=== PATIENT | female | born 1970 | race African-American/Black ===

== ENCOUNTER 2022-03-20 20:10 | Inpatient (IN) | payer OTHER, SELFPAY ==
--- NOTE | ~2022-03-20 | MR_ITS ---
EXAMINATION: MR brain/brain stem wo con DATE: 03/22/2022 13:16 INDICATION: Altered mental status. TECHNIQUE: Magnetic resonance imaging (MRI) of the brain and brainstem was performed without intraven ous contrast. COMPARISON: None. FINDINGS: There are scattered areas of nonspecific increased T2-weighted signal intensity in the cere bral white matter, which is within normal limits for the patient's age. There is no intracranial hemo rrhage, acute infarction, or abnormal intracranial mass lesion. The ventricles are normal in size. Ca vum septum pellucidum and vergae are noted. There are likely changes of ocular lens replacement surge hermilo. There is mild mucosal thickening in the paranasal sinuses. The mastoid air cells are normal. IMPRESSION: 1. Normal aging brain. Reviewed, dictated and finalized at location E. 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 Normal aging brain.
--- NOTE | ~2022-03-20 | US_ITS ---
EXAMINATION: US renal BI DATE: 03/21/2022 09:24 INDICATION: Acute kidney injury TECHNIQUE: Multiple grayscale and Doppler ultrasound images of the kidneys were obtained. COMPARISON: None. FINDINGS: The right kidney measures 12.2 x 6 x 4.7 cm. The left kidney measures 11.3 x 5.2 x 5.2 cm. The kidneys demonstrate normal parenchymal echogenicity. There is no hydronephrosis. The bladder is d ecompressed by Dozier catheter.. IMPRESSION: 1. Normal kidneys without hydronephrosis. Reviewed, dictated and finalized at location B. ICE EDUCATOR
--- NOTE | 2022-03-20 19:50 | ADMGEN ---
This patient, Vy Rendon, was admitted to Intensive Care Unit-1. Patient/family oriented to hospital policies and general routines including ID bracelet, bed and alarms, visiting hours, pain management, procedures, bathroom and other care routines, personal items, smoking policy, room service/diet, and visiting hours. Information on how to activate the Rapid Response Team has been discussed. Patient/Family are encouraged to report perceived risks to care and to ask questions if they do not understand what they are told or what they should do.
[2022-03-20 20:00] VITALS: BP 137/86; PULSE 116; PULSE 117; RESP 21; TEMP 34.7; O2SAT 100
[2022-03-20] MEDS: SODIUM CHLORIDE 0.9% IV 1,000 ML 999 ML IV CONT (20:15)
[2022-03-20 20:26] VITALS: BMI 18.3
--- NOTE | 2022-03-20 20:37 | ECG_ITS ---
Measurements Intervals [place] Rate: 117 P: 58 WY: 123 QRS: -4 QRSD: 82 T: 148 QT: 360 QTc: 503 Interpretive Statements SINUS TACHYCARDIA POSSIBLE LEFT ATRIAL ENLARGEMENT DELAYED PRECORDIAL R/S TRANSITION NONSPECIFIC ST & T-WAVE ABNORMALITY- INF/HIGH LAT LEADS BASELINE ARTIFACT- I, II, III, AVR, AVL, AVF, V4-V6 ABNORMAL ECG NO PREVIOUS ECG AVAILABLE FOR COMPARISON Electronically Signed On 03-20-2022 21:02:09 APRON TRIMMER by Jerry Duncan D.O.
--- NOTE | 2022-03-20 20:41 | PM.IMHP ---
H&P: HPI History of Present Illness Date/Time: 03/20/22 20:41 Chief Complaint: Coughing, vomiting, collapse Narrative: 51-year-old female with a past medical history of type 2 diabetes treated with insulin, hypertension, hyperlipidemia, and psychiatric illness who presented to outside ER due to cough, throwing up and collapse. Information is limited as the patient is encephalopathic and only has a GCS of 9. According to the triage nurses report from outside records the patient had been coughing and vomiting at home. She went to the bathroom and evidently collapsed. It is unclear if she hit her head. The family did not go check on her for about 5 minutes when she was found on the floor. When she arrived to the outside facility her heart rate was in the 120s. Her blood pressures were in the 130s to 150 systolic. Her glucoses were greater than 700. The patient received 3 L of normal saline and was started on an insulin drip. Her initial lactic acid was elevated to 5.3 but came down to 2.7 after IV fluid hydration. A Dozier catheter was placed and she had approximately 1.6 L of urine output after fluid boluses. The patient's temperature was low and the patient was placed under a Dakota Hugger. Her temperature had improved but by the time she arrived to our facility her temperature was again unmeasurable with surface measurements. Her temperature with a temperature pulp Dozier after being under Dakota Hugger for approximately 20 minutes was 94.3?. At the outside hospital the patient received vancomycin and cefepime. Her UA at the outside facility was unremarkable except for ketones and large amount of glucose. However when her Dozier was exchanged in the ICU she had white purulent appearing drainage from her urethra. Nursing staff did not note any evidence of superficial yeast infection. On exam the patient does have a wound to the bottom of her left foot that appeared to be consistent with puncture wound but no evidence of infection. White count at the outside facility was elevated to 15.9. Her influenza and COVID PCR was negative at the outside facility. Her pH at the outside facility was 7.1 with a pCO2 less than 14. Her bicarb was undetectable on her CMP and her potassium was 4.6. Her repeat glucose when she arrived at our facility was 280. CT scan of her head at the outside facility demonstrated cerebral atrophy and chronic ischemic changes but no acute process. CT of the cervical spine demonstrate no evidence of fracture but 2 cm thyroid nodule noted. Chest x-ray was unremarkable. Patient was given empiric antibiotic therapy with cefepime and vancomycin. Cefepime 2 g and vancomycin 1 g. Antibiotic dosing was around 14:30. On arrival to our facility the patient still had a GCS of 9. Her mother who had evidently accompanied the patient to our facility is now in the ER being evaluated for chest pain and was not available to provide any history. As a result the entirety of this history was obtained from outside medical records. Review of Systems Review of Systems: Unattainable due to the patient's mentation. [facility] Past Medical History Medical History (Updated 03/20/22 @ 22:01 by Malinda Oneill DO) Essential hypertension Hyperlipidemia Insulin dependent diabetes mellitus Surgical History Surgical History (Updated 03/20/22 @ 20:55 by Malinda Oneill DO) Surgical history unknown Family History Family History (Updated 03/20/22 @ 20:56 by Malinda Oneill DO) Other Unknown family medical history Social History Social History Smoking status: Never smoker Other substance usage details: Unable to assess; Patient unable to answer questions at this time Spiritual care concerns: No Meds Home Medications and Allergies Home Medications Medication Instructions Recorded Confirmed Type amlodipine 10 mg tablet mg 03/20/22 History atorvastatin 40 mg tablet m
[2022-03-20 20:45] VITALS: O2SAT 100
[2022-03-20 20:53] LABS: Appearance Urine Turbid (Clear); Bilirubin Urine Negative (Negative); Blood Urine 2+ (Negative); Color Urine Light Yellow (Yellow); Glucose Urine UA 2+ mg/dL (Negative); Ketones Urine 4+ mg/dL (Negative); Leukocyte Esterase Ur 1+ LEU/UL (NEGATIVE); Nitrate Urine Negative (Negative); Protein Urine 3+ mg/dL (Negative); Specific Grav Ur >= 1.030 (1.001-1.035); Urobilinogen Urine 0.2 mg/dL (<2.0)
[2022-03-20 20:53] LABS: Glucose Point of Care 280 mg/dl (65-105)
[2022-03-20 21:00] LABS: Bacteria Urine 2+ /hpf; Mucus Urine Moderate /lpf; RBC Urine 51-75 /hpf (0-2); Squamous Epithelial Cell Urine Many /hpf (Few); WBC Clumps Urine Present /HPF; WBC Urine >75 /hpf (0-3)
[2022-03-20 21:09] LABS: Add Urine Microscopic? YES
[2022-03-20 21:16] LABS: Glucose Point of Care 207 mg/dl (65-105)
[2022-03-20] MEDS: SODIUM CHLORIDE 0.9% IV 1,000 ML 500 ML IV CONT (21:25)
[2022-03-20 21:26] LABS: Lactic Acid Reflex 1.8 mmol/L (0.7-2.0)
[2022-03-20] MEDS: KCL 20 MEQ/D5/0.45% SOD CHL 1,000 ML 150 ML IV CONT (21:50)
[2022-03-20] MEDS: INSULIN HUMAN REGULAR (*BKC) 100 UNITS in SODIUM CHLORIDE 0.9% IV 99 ML IV CONT (21:51)
[2022-03-20] MEDS: FAMOTIDINE 20 MG/2 ML VIAL IV PUSH (21:59)
[2022-03-20 22:00] VITALS: BP 144/77; PULSE 120; RESP 21; TEMP 35.5; O2SAT 100
[2022-03-20 22:01] LABS: Blood Urea Nitrogen 39 mg/dL (7-17); Calcium 8.4 mg/dL (8.4-10.2); Carbon Dioxide < 5 mmol/L (22-30); Chloride 115 mmol/L (98-107); Estimated CRCL calculation 28 ml/min; Estimated Glomerular Filt Rate 36; Glucose 266 mg/dL (65-110); Magnesium 2.6 mg/dL (1.6-2.3); Phosphorus 5.2 mg/dL (2.5-4.5); Potassium 4.2 mmol/L (3.4-5.0); Sodium 157 mmol/L (137-145)
[2022-03-20 22:08] LABS: Glucose Point of Care 234 mg/dl (65-105)
[2022-03-20 22:28] LABS: Thyroid Stimulating Hormone Reflex 0.314 uIU/mL (0.465-4.68)
[2022-03-20 23:25] LABS: Free T4 Free Thyroxine Reflex 0.94 ng/dL (0.78-2.19)
[2022-03-21] VITALS (14 sets, daily range): BP systolic 140–165; BP diastolic 80–93; PULSE 94–127; RESP 13–28; TEMP 36.6–37.3; O2SAT 97–100; BMI 18.4
[2022-03-21 00:24] LABS: Glucose Point of Care 225 mg/dl (65-105)
[2022-03-21 00:24] LABS: Glucose Point of Care 249 mg/dl (65-105)
[2022-03-21 00:26] LABS: Total Triiodothyronine (T3) 0.48 NG/ML (0.97-1.69)
[2022-03-21 00:50] LABS: Hematocrit 40.8 % (37.0-47.0); Hemoglobin 12.5 g/dL (12.0-15.0); Immature Platelet Fraction Pct 1.8 % (0.9-11.2); Mean Corpuscular HGB Conc 30.6 g/dl (32-36); Mean Corpuscular Hemoglobin 28.2 pg (26-34); Mean Corpuscular Volume 92.1 fl (80-100); Mean Platelet Volume 10.7 fl (7.4-10.4); Platelet Count Result 148 k/mm3 (150-375); Red Blood Count 4.43 M/mm3 (4.2-5.4); Red Cell Distribution Width 13.8 % (11.5-14.5); White Blood Count 13.1 K/mm3 (4.5-10.0)
[2022-03-21 01:04] LABS: Glucose Point of Care 213 mg/dl (65-105)
[2022-03-21 01:32] LABS: Anion Gap 32 mmol/L (8-16); Blood Urea Nitrogen 32 mg/dL (7-17); Calcium 7.9 mg/dL (8.4-10.2); Carbon Dioxide 6 mmol/L (22-30); Chloride 122 mmol/L (98-107); Estimated CRCL calculation 41 ml/min; Estimated Glomerular Filt Rate 57; Glucose 205 mg/dL (65-110); Potassium 3.8 mmol/L (3.4-5.0); Sodium 160 mmol/L (137-145)
[2022-03-21 02:04] LABS: Glucose Point of Care 186 mg/dl (65-105)
[2022-03-21 02:52] LABS: Band Neutrophils Percent 23 % (0-6); Eosinophils Absolute Manual 0.13 K/mm3 (0.02-0.5); Eosinophils Percent Manual 1 % (0-4); Monocytes Absolute Manual 0.13 K/mm3 (0.1-0.90); Monocytes Percent Manual 1 % (3-9); Neutrophils Absolute Manual 11.13 K/mm3 (1.7-7.2); Neutrophils Percent Manual 62 % (46-73); Platelet Estimate Adequate (Adequate); Poikilocytosis 1+ (NORMAL); Total Cells Counted 100
[2022-03-21 02:53] LABS: Burr Cells 1+ (NORMAL); Crenated RBC 1+ (NORMAL); Schistocytes None Seen (NORMAL)
[2022-03-21 02:54] LABS: Toxic Granulation Present (NORMAL)
[2022-03-21 03:10] LABS: Glucose Point of Care 157 mg/dl (65-105)
[2022-03-21] MEDS: DEXTROSE 5% 1,000 ML 1,000 ML 150 ML IV CONT (03:49)
[2022-03-21] MEDS: ONDANSETRON INJ 4 MG/2 ML VIAL IV PUSH (03:50)
[2022-03-21 04:16] LABS: Anion Gap 21 mmol/L (8-16); Blood Urea Nitrogen 30 mg/dL (7-17); Calcium 8.5 mg/dL (8.4-10.2); Carbon Dioxide 10 mmol/L (22-30); Chloride 126 mmol/L (98-107); Estimated CRCL calculation 45 ml/min; Estimated Glomerular Filt Rate > 60; Glucose 151 mg/dL (65-110); Potassium 3.5 mmol/L (3.4-5.0); Sodium 157 mmol/L (137-145)
[2022-03-21 05:15] LABS: Glucose Point of Care 115 mg/dl (65-105)
[2022-03-21 06:03] LABS: Glucose Point of Care 132 mg/dl (65-105)
[2022-03-21 07:27] LABS: Glucose Point of Care 140 mg/dl (65-105)
[2022-03-21 07:32] LABS: Glucose Point of Care 151 mg/dl (65-105)
--- NOTE | 2022-03-21 07:59 | PM.IMPN ---
Progress Note: A&P Assessment and Plan (1) DKA, type 2: Qualifiers: Diabetes mellitus complication detail: with coma Qualified Code(s): E11.11 - Type 2 diabetes mellitus with ketoacidosis with coma Code(s): E11.10 - Type 2 diabetes mellitus with ketoacidosis without coma Status: Acute Assessment and Plan: DKA, appreciate critical care management and consultation (2) Sepsis: Qualifiers: Sepsis acute organ dysfunction status: with acute organ dysfunction Sepsis type: sepsis due to unspecified organism Severe sepsis acute organ dysfunction type: encephalopathy Severe sepsis shock status: without septic shock Qualified Code(s): A41.9 - Sepsis, unspecified organism; R65.20 - Severe sepsis without septic shock; G93.40 - Encephalopathy, unspecified Code(s): A41.9 - Sepsis, unspecified organism Status: Acute Assessment and Plan: Continue broad-spectrum antibiotics, follow-up cultures, unsure of etiology, suspect foot wound? (3) Abnormal urinalysis: Code(s): R82.90 - Unspecified abnormal findings in urine Status: Acute Assessment and Plan: Follow-up urine culture, continue antibiotic (4) Hypothermia: Qualifiers: Encounter type: initial encounter Qualified Code(s): T68.XXXA - Hypothermia, initial encounter Code(s): T68.XXXA - Hypothermia, initial encounter Status: Acute Assessment and Plan: Likely secondary to underlying sepsis, continue Dakota Hugger (5) Acute kidney injury: Code(s): N17.9 - Acute kidney failure, unspecified Status: Acute Assessment and Plan: Likely hypovolemic, continue IV fluids, monitor (6) Coma: Qualifiers: Coma depth: Andreina coma 9-12 Coma timing: at arrival to emergency department Qualified Code(s): R40.2422 - [place] coma scale score 9-12, at arrival to emergency department Code(s): R40.20 - Unspecified coma Status: Acute Assessment and Plan: Due to DKA, anticipate resolution when DKA resolves Plan DVT prophylaxis with Lovenox GI prophylaxis with Pepcid Code status full code Subjective Date/time seen: 03/21/22 07:59 Interval history: Patient resting in bed, responding to some commands, seems confused and intermittently somnolent. Review of Systems Review of Systems: ROS unobtainable: Yes unobtainable due to mental status Exam Narrative: General: Confused, somnolent HEENT: Atraumatic, normocephalic, mucous membranes moist CV: Regular rate and rhythm, S1, S2 Lungs: Clear to auscultation bilaterally, no rales or crackles noted, no wheezes, good air entry Abdomen: Soft, nontender, nondistended Extremities: Normal to inspection Skin: No rashes noted, no lesions or wounds seen Psych: Unable to assess Objective Data Vital Signs Vital Signs: Vital Signs - 24 hr 03/20/22 20:45 03/20/22 20:00 03/20/22 22:00 Temperature 94.5 F L 96 F L Pulse Rate 116 H 120 H Respiratory Rate 21 H 21 H Blood Pressure 137/86 144/77 H Pulse Oximetry 100 100 100 Oxygen Delivery Room Air 03/20/22 22:00 03/20/22 20:00 03/21/22 00:00 Temperature 98 F Pulse Rate 120 H 117 H 126 H Respiratory Rate 28 H Blood Pressure 157/92 H Pulse Oximetry 97 Oxygen Delivery 03/21/22 00:00 03/21/22 00:00 03/21/22 02:00 Temperature 98.4 F Pulse Rate 126 H 127 H 123 H Respiratory Rate 28 H 27 H Blood Pressure 151/83 H Pulse Oximetry 97 100 Oxygen Delivery Room Air 03/21/22 02:00 03/21/22 04:00 03/21/22 04:00 Temperature Pulse Rate 123 H 117 H 117 H Respiratory Rate 27 H Blood Pressure Pulse Oximetry 100 Oxygen Delivery Room Air 03/21/22 04:00 03/21/22 06:00 03/21/22 06:00 Temperature 98.3 F 98.3 F Pulse Rate 120 H 115 H 113 H Respiratory Rate 22 H 23 H Blood Pressure 151/83 H 153/80 H Pulse Oximetry 100 100 Oxygen Delivery Intake/Output Intake/Output: Intake & Out
[2022-03-21] MEDS: ENOXAPARIN 30 MG/0.3 ML SYRINGE SUB-Q (08:05)
[2022-03-21] MEDS: FAMOTIDINE 20 MG/2 ML VIAL IV PUSH ×2 (08:05→21:02)
[2022-03-21 08:52] LABS: Anion Gap 26 mmol/L (8-16); Blood Urea Nitrogen 27 mg/dL (7-17); Calcium 9.3 mg/dL (8.4-10.2); Carbon Dioxide 13 mmol/L (22-30); Chloride 119 mmol/L (98-107); Creatine Kinase 173 U/L (30-135); Estimated CRCL calculation 50 ml/min; Estimated Glomerular Filt Rate > 60; Glucose 129 mg/dL (65-110); Potassium 3.4 mmol/L (3.4-5.0); Sodium 158 mmol/L (137-145)
[2022-03-21 08:58] LABS: Glucose Point of Care 127 mg/dl (65-105)
[2022-03-21 08:58] LABS: Glucose Point of Care 119 mg/dl (65-105)
[2022-03-21] MEDS: KCL 20 MEQ/D5W 1,000 ML 1,000 ML 125 ML IV CONT (08:58)
[2022-03-21] MEDS: POTASSIUM CHLORIDE INJ 40 MEQ in SODIUM CHLORIDE 0.9% IV 500 ML 130 MEQ IVPB ×3 (08:59→19:56)
[2022-03-21 10:02] LABS: Glucose Point of Care 90 mg/dl (65-105)
--- NOTE | 2022-03-21 10:38 | WPDCNINT ---
Assessment and Plan Assessment and plan (1) Sepsis: Qualifiers: Sepsis type: sepsis due to unspecified organism Sepsis acute organ dysfunction status: with acute organ dysfunction Severe sepsis acute organ dysfunction type: encephalopathy Severe sepsis shock status: without septic shock Qualified Code(s): A41.9 - Sepsis, unspecified organism; R65.20 - Severe sepsis without septic shock; G93.40 - Encephalopathy, unspecified Code(s): A41.9 - Sepsis, unspecified organism Status: Acute Assessment and Plan: Sepsis likely secondary to UTI although due to lack of history patient is on broad-spectrum antibiotics Blood cultures have been sent and pending Urine cultures has been sent and pending Her lactic acid has normalized and she has not required any vasopressors Continue IV cefepime and vancomycin Continue IV fluid (2) Acute kidney injury: Code(s): N17.9 - Acute kidney failure, unspecified Status: Acute Assessment and Plan: Likely secondary to dehydration and hypovolemia Creatinine is with IV fluid Urine sodium and creatinine ordered CK level minimally Renal Ultrasound ordered and pending (3) DKA, type 2: Qualifiers: Diabetes mellitus complication detail: with coma Qualified Code(s): E11.11 - Type 2 diabetes mellitus with ketoacidosis with coma Code(s): E11.10 - Type 2 diabetes mellitus with ketoacidosis without coma Status: Acute Assessment and Plan: Patient was given IVF bolus and is currently on infusion Currently on Insulin infusion and Q1H glucose monitoring Serial labs are ordered and being monitored Replace low potassium She is currently on D5 water with potassium due to hypernatremia and hyperchloremia Will transition to SC insulin once AG is closed (4) Encephalopathy: Code(s): G93.40 - Encephalopathy, unspecified Status: Acute Assessment and Plan: Likely metabolic encephalopathy Head CT was negative TSH abnormal but not high to explain Ammonia normal Check urine drug screen (5) Dehydration: Code(s): E86.0 - Dehydration Status: Acute Assessment and Plan: Patient is currently getting IV fluids (6) Hypernatremia: Code(s): E87.0 - Hyperosmolality and hypernatremia Status: Acute Assessment and Plan: Secondary to dehydration Patient currently on D5 water with potassium Serial labs are being monitored Improving (7) Essential hypertension: Code(s): I10 - Essential (primary) hypertension Status: Acute Assessment and Plan: Her p.o. medications have been resumed although patient is not awake enough to take them at this time P.r.n. labetalol ordered (8) Candidiasis of genitalia: Code(s): B37.49 - Other urogenital candidiasis Status: Acute Assessment and Plan: IV fluconazole ordered Plan DVT prophylaxis -Lovenox Nutrition -NPO Code Status - Full Code Family updated at bedside Total Critical Care Time - 35 minutes Due to a high probability of clinically significant, life threatening deterioration, the patient required my highest level of preparedness to intervene emergently and I personally spent this critical care time directly and personally managing the patient. This critical care time included obtaining a history; examining the patient; pulse oximetry; ordering and review of studies; arranging urgent treatment with development of a management plan; evaluation of patient's response to treatment; frequent reassessment; and discussions with other providers. It was exclusive of separately billable procedures and treating other patients and teaching time. 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
[2022-03-21 10:40] LABS: Ammonia 13 umol/L (9-30)
[2022-03-21 11:02] LABS: Creatinine Urine 36.1 mg/dL
[2022-03-21 11:06] LABS: Sodium Urine Random 23 meq/L
[2022-03-21 11:17] LABS: Glucose Point of Care 142 mg/dl (65-105)
[2022-03-21] MEDS: FLUCONAZOLE 100 MG/NACL 50 ML 100 MG/50 ML BTL 50 MG IVPB (11:20)
[2022-03-21 11:55] LABS: Glucose Point of Care 154 mg/dl (65-105)
[2022-03-21 12:05] LABS: Amphetamine Screen Urine Negative (Negative); Barbiturate Screen Urine Negative (Negative); Benzodiazepines Screen Urine Negative (Negative); Cannabinoid Screen Urine Negative (Negative); Cocaine Screen Urine Negative (Negative); Methadone Screen Urine Negative (Negative); Opiate Screen Urine Negative (Negative); Phencyclidine Screen Urine Negative (Negative)
[2022-03-21 12:28] LABS: Anion Gap 15 mmol/L (8-16); Blood Urea Nitrogen 23 mg/dL (7-17); Calcium 8.7 mg/dL (8.4-10.2); Carbon Dioxide 14 mmol/L (22-30); Chloride 123 mmol/L (98-107); Estimated CRCL calculation 55 ml/min; Estimated Glomerular Filt Rate > 60; Glucose 148 mg/dL (65-110); Potassium 3.6 mmol/L (3.4-5.0); Sodium 152 mmol/L (137-145)
[2022-03-21 13:02] LABS: Glucose Point of Care 159 mg/dl (65-105)
[2022-03-21] MEDS: LABETALOL HCL INJ 100 MG/20 ML VIAL 20 MG IV PUSH (13:15)
[2022-03-21 14:01] LABS: Glucose Point of Care 152 mg/dl (65-105)
[2022-03-21 15:01] LABS: Glucose Point of Care 137 mg/dl (65-105)
[2022-03-21 16:04] LABS: Glucose Point of Care 136 mg/dl (65-105)
--- NOTE | 2022-03-21 16:10 | PCCDE ---
Consult received 03/20; pt admitted 03/20 with DKA and sepsis. Pt remains in ICU on insulin drip and only oriented x1 and not appropriate for education at this time. Will follow.
[2022-03-21] MEDS: KCL 20 MEQ/D5W 1,000 ML 1,000 ML 150 ML IV CONT ×2 (16:15→22:38)
[2022-03-21 16:57] LABS: Anion Gap 14 mmol/L (8-16); Blood Urea Nitrogen 18 mg/dL (7-17); Calcium 8.5 mg/dL (8.4-10.2); Carbon Dioxide 17 mmol/L (22-30); Chloride 122 mmol/L (98-107); Estimated CRCL calculation 61 ml/min; Estimated Glomerular Filt Rate > 60; Glucose 121 mg/dL (65-110); Potassium 3.4 mmol/L (3.4-5.0); Sodium 153 mmol/L (137-145)
[2022-03-21 17:03] LABS: Glucose Point of Care 115 mg/dl (65-105)
[2022-03-21] MEDS: INSULIN HUMAN REGULAR (*BKC) 100 UNITS in SODIUM CHLORIDE 0.9% IV 99 ML IV CONT (17:57)
[2022-03-21 18:03] LABS: Glucose Point of Care 117 mg/dl (65-105)
[2022-03-21 18:56] LABS: Glucose Point of Care 125 mg/dl (65-105)
[2022-03-21 20:00] LABS: Glucose Point of Care 116 mg/dl (65-105)
[2022-03-21 20:37] LABS: Anion Gap 17 mmol/L (8-16); Blood Urea Nitrogen 15 mg/dL (7-17); Calcium 8.5 mg/dL (8.4-10.2); Carbon Dioxide 18 mmol/L (22-30); Chloride 119 mmol/L (98-107); Estimated CRCL calculation 69 ml/min; Estimated Glomerular Filt Rate > 60; Glucose 113 mg/dL (65-110); Potassium 3.4 mmol/L (3.4-5.0); Sodium 154 mmol/L (137-145)
[2022-03-21] MEDS: TOLNAFTATE 1% POWDER 45 GM BTL 1 APPLIC TOPICAL (21:03)
[2022-03-21 21:08] LABS: Glucose Point of Care 117 mg/dl (65-105)
[2022-03-21 21:58] LABS: Glucose Point of Care 122 mg/dl (65-105)
[2022-03-21 22:54] LABS: Glucose Point of Care 112 mg/dl (65-105)
[2022-03-22] VITALS (21 sets, daily range): BP systolic 129–167; BP diastolic 76–99; PULSE 82–110; RESP 14–20; TEMP 36.3–37.2; O2SAT 98–100
[2022-03-22] MEDS: KCL 20 MEQ/SW 100 ML 100 ML 50 MEQ IVPB (00:14)
[2022-03-22 00:20] LABS: Glucose Point of Care 107 mg/dl (65-105)
[2022-03-22 01:06] LABS: Glucose Point of Care 125 mg/dl (65-105)
[2022-03-22 02:02] LABS: Glucose Point of Care 120 mg/dl (65-105)
[2022-03-22 03:13] LABS: Anion Gap 8 mmol/L (8-16); Blood Urea Nitrogen 11 mg/dL (7-17); Calcium 8.3 mg/dL (8.4-10.2); Carbon Dioxide 20 mmol/L (22-30); Chloride 119 mmol/L (98-107); Estimated CRCL calculation 69 ml/min; Estimated Glomerular Filt Rate > 60; Glucose 129 mg/dL (65-110); Potassium 3.7 mmol/L (3.4-5.0); Sodium 147 mmol/L (137-145)
[2022-03-22 03:14] LABS: Glucose Point of Care 119 mg/dl (65-105)
[2022-03-22 04:16] LABS: Glucose Point of Care 140 mg/dl (65-105)
[2022-03-22 05:17] LABS: Glucose Point of Care 125 mg/dl (65-105)
[2022-03-22] MEDS: KCL 20 MEQ/D5W 1,000 ML 1,000 ML 150 ML IV CONT (05:17)
[2022-03-22 05:53] LABS: Glucose Point of Care 124 mg/dl (65-105)
[2022-03-22 06:43] LABS: Glucose Point of Care 104 mg/dl (65-105)
[2022-03-22] MEDS: TOLNAFTATE 1% POWDER 45 GM BTL 1 APPLIC TOPICAL ×2 (08:13→21:19)
[2022-03-22] MEDS: ENOXAPARIN 30 MG/0.3 ML SYRINGE SUB-Q (08:15)
[2022-03-22] MEDS: FAMOTIDINE 20 MG/2 ML VIAL IV PUSH ×2 (08:15→21:16)
[2022-03-22 08:25] LABS: Glucose Point of Care 108 mg/dl (65-105)
[2022-03-22] MEDS: INSULIN GLARGINE (*BKC) 100 UNITS/ML 20 UNITS SUB-Q (08:30)
[2022-03-22 09:22] LABS: Hematocrit 36.6 % (37.0-47.0); Hemoglobin 12.4 g/dL (12.0-15.0); Mean Corpuscular HGB Conc 33.9 g/dl (32-36); Mean Corpuscular Hemoglobin 28.3 pg (26-34); Mean Corpuscular Volume 83.6 fl (80-100); Mean Platelet Volume 9.5 fl (7.4-10.4); Platelet Count Result 112 k/mm3 (150-375); Red Blood Count 4.38 M/mm3 (4.2-5.4); Red Cell Distribution Width 14.1 % (11.5-14.5); White Blood Count 8.1 K/mm3 (4.5-10.0)
[2022-03-22 09:32] LABS: Alanine Aminotransferase 31 U/L (6-35); Albumin Level 3.3 g/dL (3.5-5.1); Alkaline Phosphatase 155 U/L (38-126); Anion Gap 10 mmol/L (8-16); Aspartate Amino Transferase 69 U/L (14-36); Bilirubin,Total 0.5 mg/dL (0.2-1.3); Blood Urea Nitrogen 7 mg/dL (7-17); Calcium 8.7 mg/dL (8.4-10.2); Carbon Dioxide 24 mmol/L (22-30); Chloride 110 mmol/L (98-107); Estimated CRCL calculation 92 ml/min; Estimated Glomerular Filt Rate > 60; Glucose 125 mg/dL (65-110); Sodium 144 mmol/L (137-145)
--- NOTE | 2022-03-22 09:58 | WPDINTPN ---
Progress Note: A&P Assessment and Plan (1) Sepsis: Qualifiers: Sepsis type: sepsis due to unspecified organism Sepsis acute organ dysfunction status: with acute organ dysfunction Severe sepsis acute organ dysfunction type: encephalopathy Severe sepsis shock status: without septic shock Qualified Code(s): A41.9 - Sepsis, unspecified organism; R65.20 - Severe sepsis without septic shock; G93.40 - Encephalopathy, unspecified Code(s): A41.9 - Sepsis, unspecified organism Status: Acute Assessment and Plan: Sepsis likely secondary to UTI although due to lack of history patient was started on broad-spectrum antibiotics Blood cultures have been sent and pending Urine cultures has been sent and pending Her lactic acid has normalized and she has not required any vasopressors Change IV cefepime and vancomycin to IV Rocephin Continue IV fluid but decrease rate (2) Acute kidney injury: Code(s): N17.9 - Acute kidney failure, unspecified Status: Acute Assessment and Plan: Likely secondary to dehydration and hypovolemia Resolved now with IV fluids CK level minimally Renal Ultrasound was negative (3) DKA, type 2: Qualifiers: Diabetes mellitus complication detail: with coma Qualified Code(s): E11.11 - Type 2 diabetes mellitus with ketoacidosis with coma Code(s): E11.10 - Type 2 diabetes mellitus with ketoacidosis without coma Status: Acute Assessment and Plan: Patient was given IVF bolus and is currently on infusion Currently on Insulin infusion and Q1H glucose monitoring Serial labs are ordered and being monitored Her anion gap has closed and I will switch her subcutaneous insulin Start clear liquid diet and advance as tolerated Continue but decrease fluids Replace electrolytes (4) Encephalopathy: Code(s): G93.40 - Encephalopathy, unspecified Status: Acute Assessment and Plan: Likely metabolic encephalopathy which improving is improving at slower than expected rate Head CT was negative TSH abnormal but not high to explain Ammonia normal Normal urine drug screen Check MRI head to evaluate for any CVA or other conditions like PRES Consult neurology (5) Dehydration: Code(s): E86.0 - Dehydration Status: Acute Assessment and Plan: Improved (6) Hypernatremia: Code(s): E87.0 - Hyperosmolality and hypernatremia Status: Acute Assessment and Plan: Presented with significant hyponatremia Likely Secondary to dehydration Improved with D5 water with potassium Continue IV fluids but decrease rate now (7) Essential hypertension: Code(s): I10 - Essential (primary) hypertension Status: Acute Assessment and Plan: Her p.o. medications have been resumed although patient has not been able to take them p.o. yet P.r.n. IV labetalol ordered (8) Candidiasis of genitalia: Code(s): B37.49 - Other urogenital candidiasis Status: Acute Assessment and Plan: IV fluconazole was given Plan DVT prophylaxis -Lovenox Nutrition -advance diet Code Status - Full Code Total Critical Care Time - 32 minutes Due to a high probability of clinically significant, life threatening deterioration, the patient required my highest level of preparedness to intervene emergently and I personally spent this critical care time directly and personally managing the patient. This critical care time included obtaining a history; examining the patient; pulse oximetry; ordering and review of studies; arranging urgent treatment with development of a management plan; evaluation of patient's response to treatment; frequent reassessment; and discussions with other providers. It was exclusive of separately billable procedures and treating other patients and teaching time. Please see Assessment and Plan section and the rest of the note for further information on patient assessment and treatment Subjective Date/time
--- NOTE | 2022-03-22 12:00 | WPDNEURCNPN ---
Assessment and Plan Assessment and plan (1) Encephalopathy: Code(s): G93.40 - Encephalopathy, unspecified Status: Acute (2) Sepsis: Qualifiers: Sepsis acute organ dysfunction status: with acute organ dysfunction Sepsis type: sepsis due to unspecified organism Severe sepsis acute organ dysfunction type: encephalopathy Severe sepsis shock status: without septic shock Qualified Code(s): A41.9 - Sepsis, unspecified organism; R65.20 - Severe sepsis without septic shock; G93.40 - Encephalopathy, unspecified Code(s): A41.9 - Sepsis, unspecified organism Status: Acute (3) DKA, type 2: Qualifiers: Diabetes mellitus complication detail: with coma Qualified Code(s): E11.11 - Type 2 diabetes mellitus with ketoacidosis with coma Code(s): E11.10 - Type 2 diabetes mellitus with ketoacidosis without coma Status: Acute Assessment and Plan: Ms. Rendon is a 52 year old female with a history of DM type 2, HTN, HLD presenting intially due to cough, vomiting, and decreased responsiveness, found to have DKA and UTI, both of which are being treated. Likely metabolic encephalopathy. Mental status is still not at baseline despite normalization of glucose/bicarb and appropriate antibiotic treatment. - Agree with MRI brain - If no significant improvement in mental status, recommend routine EEG Consult date: 03/22/22 Time Seen: 12:00 Reason for consult: Altered mental status HPI: Vy Rendon is a 52 year old female with a history of type 2 DM, HLD, HTN who presented initially to OSH due to cough, emesis, and decreased responsiveness. History obtained from chart review due to patient's mental status. She was having cough and vomitng at home, family found her on the floor about 5 min after she went to the bathroom. At OSH her blood sugar was >700. She was started on insulin drip. She was also hypothermic. She was transferred to [facility] for further care. She was found to have a UTI, for which she is currently being treated for. WBC was 15.9 at OSH, but has now normalized. Blood sugar has been in the 100s recently and bicarb has normalized. Due to lack of dramatic improvement in her mental status, CT head was obtained which showed evidence of volume loss and small vessel disease but no acute changes. She is currently on antibiotics, but no sedations and is protecting her airway. Review of Systems Review of Systems: ROS unobtainable: Yes unobtainable due to mental status PMFSH Past Medical History Medical History Essential hypertension Hyperlipidemia Insulin dependent diabetes mellitus Surgical History Surgical History Surgical history unknown Family History Family History Other Unknown family medical history Social History Social History Smoking status: Never smoker Other substance usage details: Unable to assess; Patient unable to answer questions at this time Spiritual care concerns: No Meds Home Medications and Allergies Home Medications Medication Instructions Recorded Confirmed Type amlodipine 10 mg tablet 10 mg PO DAILY 03/20/22 03/20/22 History atorvastatin 40 mg tablet 40 mg PO DAILY 03/20/22 03/20/22 History chlorthalidone 25 mg tablet 25 mg PO DAILY 03/20/22 03/20/22 History dulaglutide 0.75 mg/0.5 mL mg subcut 03/20/22 History subcutaneous pen injector (Trulicity) empagliflozin 25 mg tablet 25 mg PO DAILY 03/20/22 03/20/22 History (Jardiance) famotidine 20 mg tablet 20 mg PO DAILY 03/20/22 03/20/22 History gabapentin 300 mg capsule 300 mg PO TID 03/20/22 03/20/22 History ibuprofen 800 mg tablet 800 mg PO Q8H 03/20/22 03/20/22 History insulin glargine 100 unit/mL (3 unit subcut 03/20/22 History mL) subcutaneous pen (Lantus
[2022-03-22 12:25] LABS: Glucose Point of Care 162 mg/dl (65-105)
--- NOTE | 2022-03-22 12:49 | PC.NURSE ---
Addendum entered by Jennifer Frazier RN 03/22/22 12:50: Son Deondre Rendon notified for new room number. Original Note: This patient, Vy Rendon, was transferred to [facility] on 03/22/22 at 1249. Personal belongings sent with patient. Report given to Angelica KRAUS. Appropriate documentation sent with patient.
--- NOTE | 2022-03-22 13:53 | PC.NURSE ---
This patient, Vy Rendon, was received from [ICU 1 ] on 03/22/22 at 1320. Patient/family oriented to unit policies and routines
[2022-03-22] MEDS: LABETALOL HCL INJ 100 MG/20 ML VIAL 20 MG IV PUSH (14:13)
[2022-03-22 16:32] LABS: Glucose Point of Care 248 mg/dl (65-105)
[2022-03-22] MEDS: KCL 20 MEQ/D5W 1,000 ML 1,000 ML 50 ML IV CONT (17:24)
[2022-03-22] MEDS: INSULIN ASPART (*BKC) 100 UNITS/ML SUB-Q ×2 (17:25→21:17)
[2022-03-22 20:21] LABS: Glucose Point of Care 222 mg/dl (65-105)
[2022-03-22] MEDS: METOPROLOL TARTRATE 50 MG TAB 100 MG PO (21:19)
[2022-03-22 23:51] LABS: Glucose Point of Care 153 mg/dl (65-105)
[2022-03-23] VITALS (15 sets, daily range): BP systolic 116–148; BP diastolic 72–88; PULSE 72–116; RESP 14–20; TEMP 36.4–37.2; O2SAT 97–100
[2022-03-23 05:04] LABS: Hematocrit 39.5 % (37.0-47.0); Hemoglobin 12.9 g/dL (12.0-15.0); Mean Corpuscular HGB Conc 32.7 g/dl (32-36); Mean Corpuscular Hemoglobin 28.4 pg (26-34); Mean Platelet Volume 10.3 fl (7.4-10.4); Platelet Count Result 113 k/mm3 (150-375); Red Blood Count 4.54 M/mm3 (4.2-5.4); Red Cell Distribution Width 14.7 % (11.5-14.5); White Blood Count 5.6 K/mm3 (4.5-10.0)
[2022-03-23 05:17] LABS: Alanine Aminotransferase 29 U/L (6-35); Albumin Level 3.2 g/dL (3.5-5.1); Alkaline Phosphatase 151 U/L (38-126); Anion Gap 11 mmol/L (8-16); Aspartate Amino Transferase 50 U/L (14-36); Bilirubin,Total 0.7 mg/dL (0.2-1.3); Blood Urea Nitrogen 9 mg/dL (7-17); Carbon Dioxide 21 mmol/L (22-30); Chloride 109 mmol/L (98-107); Estimated CRCL calculation 92 ml/min; Estimated Glomerular Filt Rate > 60; Glucose 210 mg/dL (65-110); Magnesium 2.2 mg/dL (1.6-2.3); Phosphorus 1.7 mg/dL (2.5-4.5); Sodium 141 mmol/L (137-145)
[2022-03-23 08:36] LABS: Glucose Point of Care 197 mg/dl (65-105)
--- NOTE | 2022-03-23 08:40 | PM.IMPN ---
Progress Note: A&P Assessment and Plan (1) Orthostatic hypotension: Code(s): I95.1 - Orthostatic hypotension Status: Acute Assessment and Plan: Recheck in the am, had episode of vasovagal pre-syncopal episode going to the bathroom, suspect this is 2/2 dehydration and recent DKA, monitor (2) Sepsis: Qualifiers: Sepsis acute organ dysfunction status: with acute organ dysfunction Sepsis type: sepsis due to unspecified organism Severe sepsis acute organ dysfunction type: encephalopathy Severe sepsis shock status: without septic shock Qualified Code(s): A41.9 - Sepsis, unspecified organism; R65.20 - Severe sepsis without septic shock; G93.40 - Encephalopathy, unspecified Code(s): A41.9 - Sepsis, unspecified organism Status: Acute Assessment and Plan: All cultures came back negative including urine cultures, will discontinue antibiotics and observe off of these, perhaps sepsis picture was secondary to severe DKA? Appears resolved at this time (3) Acute kidney injury: Code(s): N17.9 - Acute kidney failure, unspecified Status: Acute Assessment and Plan: Resolved, renal ultrasound within normal limits Discontinue IV fluids and observe on p.o. (4) DKA, type 2: Qualifiers: Diabetes mellitus complication detail: with coma Qualified Code(s): E11.11 - Type 2 diabetes mellitus with ketoacidosis with coma Code(s): E11.10 - Type 2 diabetes mellitus with ketoacidosis without coma Status: Acute Assessment and Plan: Resolved, advance diet as tolerated, discontinue IV fluids, restart home (5) Encephalopathy: Code(s): G93.40 - Encephalopathy, unspecified Status: Acute Assessment and Plan: Resolving, will restart home psychiatric medications and see if this helps mentation MRI within normal limits, neuro recommended EEG if symptoms remain, will order this and follow-up results (6) Dehydration: Code(s): E86.0 - Dehydration Status: Acute Assessment and Plan: Resolved (7) Hypernatremia: Code(s): E87.0 - Hyperosmolality and hypernatremia Status: Acute Assessment and Plan: Resolved (8) Essential hypertension: Code(s): I10 - Essential (primary) hypertension Status: Acute Assessment and Plan: Stable (9) Candidiasis of genitalia: Code(s): B37.49 - Other urogenital candidiasis Status: Acute Assessment and Plan: Resolved Plan DVT prophylaxis with Lovenox GI prophylaxis with Pepcid Code status full code Subjective Date/time seen: 03/23/22 08:40 Objective Data Vital Signs Vital Signs: Vital Signs - 24 hr 03/22/22 10:00 03/22/22 10:00 03/22/22 12:00 Temperature 98.6 F Pulse Rate 100 104 H 109 H Respiratory Rate 16 Blood Pressure 129/79 Pulse Oximetry 98 Oxygen Delivery 03/22/22 12:00 03/22/22 11:15 03/22/22 11:46 Temperature 98.5 F 98.7 F Pulse Rate 108 H 107 H Respiratory Rate 19 18 Blood Pressure Pulse Oximetry 100 99 Oxygen Delivery Room Air 03/22/22 12:32 03/22/22 13:38 03/22/22 13:24 Temperature 98.9 F 97.4 F L Pulse Rate 107 H 110 H 110 H Respiratory Rate 19 20 Blood Pressure 167/83 H Pulse Oximetry 100 100 Oxygen Delivery 03/22/22 14:13 03/22/22 14:00 03/22/22 13:24 Temperature Pulse Rate 100 94 100 Respiratory Rate 20 Blood Pressure Pulse Oximetry 100 Oxygen Delivery Room Air 03/22/22 16:00 03/22/22 16:00 03/22/22 16:00 Temperature 98.5 F Pulse Rate 97 94 Respiratory Rate 20 Blood Pressure 133/76 Pulse Oximetry 98 Oxygen Delivery Room Air 03/22/22 18:00 03/22/22 20:00 03/22/22 21:19 Temperature 98.6 F Pulse Rate 103 H 107 H 104 H Respiratory Rate 18 Blood Pressure 137/76 Pulse Oximetry 99 Oxygen Delivery 03/22/22 23:53 03/22/22 20:00 03/22/22 22:00 Temperature 97.6 F Pulse Rate 82 106 H 96 Respiratory Rate 20
[2022-03-23] MEDS: ENOXAPARIN 30 MG/0.3 ML SYRINGE SUB-Q (09:21)
[2022-03-23] MEDS: METOPROLOL TARTRATE 50 MG TAB 100 MG PO ×2 (09:21→20:53)
[2022-03-23] MEDS: ATORVASTATIN 40 MG TABLET PO (09:22)
[2022-03-23] MEDS: LORATADINE 10 MG TABLET PO (09:22)
[2022-03-23] MEDS: FAMOTIDINE 20 MG/2 ML VIAL IV PUSH (09:22)
[2022-03-23] MEDS: POTASSIUM CHLORIDE 10 MEQ TABLET.ER PO (09:23)
[2022-03-23] MEDS: MONTELUKAST SODIUM 10 MG TABLET PO (09:23)
[2022-03-23] MEDS: SERTRALINE HCL 50 MG TABLET PO ×2 (09:23→17:52)
[2022-03-23] MEDS: amLODIPine BESYLATE 5 MG TABLET 10 MG PO (09:23)
[2022-03-23] MEDS: TOLNAFTATE 1% POWDER 45 GM BTL 1 APPLIC TOPICAL ×2 (09:23→20:53)
[2022-03-23] MEDS: INSULIN GLARGINE (*BKC) 100 UNITS/ML 20 UNITS SUB-Q (11:37)
[2022-03-23] MEDS: POTASSIUM CHLORIDE 20 MEQ PACKET (FOR LIQUID) 40 MEQ PO (11:37)
[2022-03-23] MEDS: KCL 20 MEQ/D5W 1,000 ML 1,000 ML 50 ML IV CONT (11:38)
[2022-03-23 13:21] LABS: Glucose Point of Care 322 mg/dl (65-105)
[2022-03-23] MEDS: INSULIN ASPART (*BKC) 100 UNITS/ML SUB-Q ×2 (13:42→17:55)
--- NOTE | 2022-03-23 15:57 | PCPTNOTE ---
Rapid response called in room 210 at 1545. Was going to evaluate, but physical therapy will check on patient tomorrow and see if medically stable and appropriate.
[2022-03-23 16:23] LABS: Glucose Point of Care 241 mg/dl (65-105)
--- NOTE | 2022-03-23 16:30 | PCOTNOTE ---
Rapid response called in room 210 at 1545. OT will check on patient tomorrow and see if medically stable and appropriate for evaluation.
[2022-03-23 16:44] LABS: Hemoglobin A1C > 14.0 % (<5.7)
[2022-03-23] MEDS: SERTRALINE HCL 50 MG TABLET 100 MG PO (17:51)
[2022-03-23] MEDS: SODIUM CHLORIDE 0.9% IV 1,000 ML 999 ML IV CONT (17:53)
[2022-03-23 20:08] LABS: Glucose Point of Care 187 mg/dl (65-105)
[2022-03-23] MEDS: SODIUM CHLORIDE 0.9% IV 1,000 ML 100 ML IV CONT (20:50)
[2022-03-23] MEDS: QUEtiapine FUMARATE 100 MG TABLET PO (20:53)
[2022-03-24] VITALS (9 sets, daily range): BP systolic 76–154; BP diastolic 48–90; PULSE 73–97; RESP 18–20; TEMP 36.4–37; O2SAT 98–100; BMI 25.2
[2022-03-24 04:56] LABS: Hematocrit 32.8 % (37.0-47.0); Hemoglobin 11.1 g/dL (12.0-15.0); Mean Corpuscular HGB Conc 33.8 g/dl (32-36); Mean Corpuscular Hemoglobin 28.8 pg (26-34); Mean Corpuscular Volume 85.2 fl (80-100); Mean Platelet Volume 10.1 fl (7.4-10.4); Platelet Count Result 120 k/mm3 (150-375); Red Blood Count 3.85 M/mm3 (4.2-5.4); Red Cell Distribution Width 14.5 % (11.5-14.5); White Blood Count 4.9 K/mm3 (4.5-10.0)
[2022-03-24 05:10] LABS: Alanine Aminotransferase 24 U/L (6-35); Albumin Level 2.9 g/dL (3.5-5.1); Alkaline Phosphatase 119 U/L (38-126); Anion Gap 9 mmol/L (8-16); Aspartate Amino Transferase 45 U/L (14-36); Bilirubin,Total 0.6 mg/dL (0.2-1.3); Blood Urea Nitrogen 14 mg/dL (7-17); Calcium 8.1 mg/dL (8.4-10.2); Carbon Dioxide 27 mmol/L (22-30); Chloride 106 mmol/L (98-107); Estimated CRCL calculation 80 ml/min; Estimated Glomerular Filt Rate > 60; Glucose 155 mg/dL (65-110); Magnesium 2.3 mg/dL (1.6-2.3); Phosphorus 1.8 mg/dL (2.5-4.5); Sodium 142 mmol/L (137-145)
[2022-03-24] MEDS: SODIUM CHLORIDE 0.9% IV 1,000 ML 100 ML IV CONT (06:45)
[2022-03-24 07:55] LABS: Glucose Point of Care 165 mg/dl (65-105)
--- NOTE | 2022-03-24 08:46 | PCOTNOTE ---
Attempted to see pt. for occupational therapy evaluation. Per nursing, wait on evaluation and attempt after hospitalist has seen due to pt. orthostatic hypotension. Following.
[2022-03-24] MEDS: POTASSIUM CHLORIDE 10 MEQ TABLET.ER PO (09:03)
[2022-03-24] MEDS: SALINE LOCK FLUSH 10 ML IV PUSH ×2 (09:03→15:23)
[2022-03-24] MEDS: EMPAGLIFLOZIN 25 MG TABLET PO (09:03)
[2022-03-24] MEDS: SERTRALINE HCL 50 MG TABLET PO (09:03)
[2022-03-24] MEDS: ATORVASTATIN 40 MG TABLET PO (09:03)
[2022-03-24] MEDS: POTASSIUM CHLORIDE 20 MEQ TABLET 80 MEQ PO (09:03)
[2022-03-24] MEDS: ENOXAPARIN 30 MG/0.3 ML SYRINGE SUB-Q (09:03)
[2022-03-24] MEDS: MONTELUKAST SODIUM 10 MG TABLET PO (09:04)
[2022-03-24] MEDS: FAMOTIDINE 20 MG TABLET PO (09:04)
[2022-03-24] MEDS: TOLNAFTATE 1% POWDER 45 GM BTL 1 APPLIC TOPICAL ×2 (09:04→21:21)
[2022-03-24] MEDS: LORATADINE 10 MG TABLET PO (09:04)
[2022-03-24] MEDS: INSULIN GLARGINE (*BKC) 100 UNITS/ML 20 UNITS SUB-Q (09:07)
[2022-03-24 11:45] LABS: Glucose Point of Care 220 mg/dl (65-105)
[2022-03-24] MEDS: INSULIN ASPART (*BKC) 100 UNITS/ML SUB-Q (11:52)
--- NOTE | 2022-03-24 13:20 | PC.NURSE ---
This patient, Vy Rendon, was transferred to [ [id number]] on 03/24/22 at 1310. Personal belongings sent with patient. Report given to [ EFRA Poole @ [id number]]. Appropriate documentation sent with patient. Transfer delayed d/t patient eating lunch
--- NOTE | 2022-03-24 14:32 | PC.NURSE ---
This patient, Vy Rendon, was received from [[facility]-1 ] on 03/24/22 at 1315. Patient oriented to unit policies and routines. Patient sitting up in bed with her lunch. Patient denies any pain at this time. Patient has no complaints.
[2022-03-24] MEDS: SODIUM CHLORIDE 0.9% IV 1,000 ML 150 ML IV CONT ×2 (15:23→21:21)
[2022-03-24] MEDS: SILVERGEL (ELTA) 45 ML 1 APPLIC TOPICAL (15:25)
[2022-03-24] MEDS: ACETAMINOPHEN 325 MG TABLET 650 MG PO (15:54)
[2022-03-24 17:27] LABS: Glucose Point of Care 70 mg/dl (65-105)
--- NOTE | 2022-03-24 18:39 | PM.IMPN ---
Progress Note: A&P Assessment and Plan (1) Orthostatic hypotension: Code(s): I95.1 - Orthostatic hypotension Status: Acute Assessment and Plan: Continues to be orthostatic, increased IV fluids and monitor Hold all blood pressure medications, consider restarting metoprolol as patient states she has a long history of palpitations/possible SVT? (2) Sepsis: Qualifiers: Sepsis type: sepsis due to unspecified organism Sepsis acute organ dysfunction status: with acute organ dysfunction Severe sepsis acute organ dysfunction type: encephalopathy Severe sepsis shock status: without septic shock Qualified Code(s): A41.9 - Sepsis, unspecified organism; R65.20 - Severe sepsis without septic shock; G93.40 - Encephalopathy, unspecified Code(s): A41.9 - Sepsis, unspecified organism Status: Acute Assessment and Plan: Patient likely was never septic, all symptoms were likely secondary to DKA, patient has remained stable off antibiotics (3) Acute kidney injury: Code(s): N17.9 - Acute kidney failure, unspecified Status: Acute Assessment and Plan: Resolved, renal ultrasound within normal limits Discontinue IV fluids and observe on p.o. (4) DKA, type 2: Qualifiers: Diabetes mellitus complication detail: with coma Qualified Code(s): E11.11 - Type 2 diabetes mellitus with ketoacidosis with coma Code(s): E11.10 - Type 2 diabetes mellitus with ketoacidosis without coma Status: Acute Assessment and Plan: Resolved, advance diet as tolerated (5) Encephalopathy: Code(s): G93.40 - Encephalopathy, unspecified Status: Acute Assessment and Plan: Resolved when back on home medications (6) Dehydration: Code(s): E86.0 - Dehydration Status: Acute Assessment and Plan: Continue IV fluids (7) Hypernatremia: Code(s): E87.0 - Hyperosmolality and hypernatremia Status: Acute Assessment and Plan: Resolved (8) Essential hypertension: Code(s): I10 - Essential (primary) hypertension Status: Acute Assessment and Plan: Stable (9) Candidiasis of genitalia: Code(s): B37.49 - Other urogenital candidiasis Status: Acute Assessment and Plan: Resolved Plan DVT prophylaxis with Lovenox GI prophylaxis with Pepcid Code status full code Subjective Date/time seen: 03/24/22 18:39 Interval history: No overnight events noted. No chest pain or shortness of breath. No nausea, vomiting or diarrhea. No fevers or chills. Patient still feels a little weak and lightheaded when she tries to get up. Patient admitted that she does not take her insulin at home nor does she check her blood sugar hardly ever. Review of Systems Review of Systems: 12 point review of systems was assessed and was negative except as noted in the HPI Exam Narrative: General: No acute distress, alert and oriented per baseline HEENT: Atraumatic, normocephalic, mucous membranes moist CV: Regular rate and rhythm, S1, S2 Lungs: Clear to auscultation bilaterally, no rales or crackles noted, no wheezes, good air entry Abdomen: Soft, nontender, nondistended Extremities: Normal to inspection Skin: No rashes noted, no lesions or wounds seen Psych: Euthymic, normal affect Objective Data Vital Signs Vital Signs: Vital Signs - 24 hr 03/23/22 20:00 03/23/22 20:53 03/23/22 23:47 Temperature 98.1 F 97.9 F Pulse Rate 83 116 H 72 Respiratory Rate 20 20 Blood Pressure 129/76 127/88 Pulse Oximetry 99 99 Oxygen Delivery 03/24/22 04:00 03/23/22 20:00 03/23/22 22:00 Temperature 98 F Pulse Rate 75 83 75 Respiratory Rate 20 Blood Pressure 131/75 Pulse Oximetry 99 Oxygen Delivery 03/24/22 00:00 03/24/22 02:00 03/24/22 04:00 Temperature Pulse Rate 73 77 86 Respiratory Rate Blood Pressure Pulse Oximetry Oxygen Delivery 03/24/22 06:00 03/24/22 0
[2022-03-24] MEDS: QUEtiapine FUMARATE 100 MG TABLET PO (21:21)
[2022-03-24] MEDS: MIRTAZAPINE 15 MG TABLET PO (21:21)
[2022-03-24 21:59] LABS: Glucose Point of Care 146 mg/dl (65-105)
[2022-03-25] VITALS (9 sets, daily range): BP systolic 107–177; BP diastolic 66–103; PULSE 85–125; RESP 16–20; TEMP 36–37.3; O2SAT 98–100
[2022-03-25] MEDS: SODIUM CHLORIDE 0.9% IV 1,000 ML 150 ML IV CONT ×3 (04:02→16:42)
[2022-03-25 06:38] LABS: Hematocrit 32.7 % (37.0-47.0); Hemoglobin 10.8 g/dL (12.0-15.0); Mean Corpuscular Hemoglobin 28.4 pg (26-34); Mean Corpuscular Volume 86.1 fl (80-100); Mean Platelet Volume 10.4 fl (7.4-10.4); Platelet Count Result 149 k/mm3 (150-375); Red Cell Distribution Width 14.3 % (11.5-14.5); White Blood Count 4.6 K/mm3 (4.5-10.0)
[2022-03-25] MEDS: SALINE LOCK FLUSH 10 ML IV PUSH ×2 (06:46→16:42)
[2022-03-25 06:55] LABS: Alanine Aminotransferase 22 U/L (6-35); Albumin Level 2.7 g/dL (3.5-5.1); Alkaline Phosphatase 125 U/L (38-126); Anion Gap 7 mmol/L (8-16); Aspartate Amino Transferase 42 U/L (14-36); Bilirubin,Total 0.5 mg/dL (0.2-1.3); Blood Urea Nitrogen 7 mg/dL (7-17); Calcium 7.9 mg/dL (8.4-10.2); Carbon Dioxide 28 mmol/L (22-30); Chloride 106 mmol/L (98-107); Estimated CRCL calculation 92 ml/min; Estimated Glomerular Filt Rate > 60; Glucose 127 mg/dL (65-110); Magnesium 2.1 mg/dL (1.6-2.3); Phosphorus 1.6 mg/dL (2.5-4.5); Potassium 2.9 mmol/L (3.4-5.0); Sodium 141 mmol/L (137-145)
[2022-03-25 08:28] LABS: Glucose Point of Care 91 mg/dl (65-105)
[2022-03-25] MEDS: POTASSIUM CHLORIDE 10 MEQ TABLET.ER PO (09:51)
[2022-03-25] MEDS: EMPAGLIFLOZIN 25 MG TABLET PO (09:51)
[2022-03-25] MEDS: ATORVASTATIN 40 MG TABLET PO (09:51)
[2022-03-25] MEDS: FAMOTIDINE 20 MG TABLET PO (09:51)
[2022-03-25] MEDS: LORATADINE 10 MG TABLET PO (09:51)
[2022-03-25] MEDS: MONTELUKAST SODIUM 10 MG TABLET PO (09:51)
[2022-03-25] MEDS: SERTRALINE HCL 50 MG TABLET PO (09:51)
[2022-03-25] MEDS: SILVERGEL (ELTA) 45 ML 1 APPLIC TOPICAL (09:52)
[2022-03-25] MEDS: TOLNAFTATE 1% POWDER 45 GM BTL 1 APPLIC TOPICAL ×2 (09:52→20:53)
[2022-03-25] MEDS: INSULIN GLARGINE (*BKC) 100 UNITS/ML 20 UNITS SUB-Q (09:57)
--- NOTE | 2022-03-25 10:41 | PM.IMPN ---
Progress Note: A&P Assessment and Plan (1) Orthostatic hypotension: Code(s): I95.1 - Orthostatic hypotension Status: Acute Assessment and Plan: Continues to be orthostatic, increased IV fluids and monitor Hold all blood pressure medications, consider restarting metoprolol as patient states she has a long history of palpitations/possible SVT? 03/25: Blood pressure starting to trend up off her medications, heart rate in the high 90s low 100s, will restart metoprolol if orthostatic BP looks ok (2) Sepsis: Qualifiers: Sepsis acute organ dysfunction status: with acute organ dysfunction Sepsis type: sepsis due to unspecified organism Severe sepsis acute organ dysfunction type: encephalopathy Severe sepsis shock status: without septic shock Qualified Code(s): A41.9 - Sepsis, unspecified organism; R65.20 - Severe sepsis without septic shock; G93.40 - Encephalopathy, unspecified Code(s): A41.9 - Sepsis, unspecified organism Status: Acute Assessment and Plan: Patient likely was never septic, all symptoms were likely secondary to DKA, patient has remained stable off antibiotics (3) Acute kidney injury: Code(s): N17.9 - Acute kidney failure, unspecified Status: Acute Assessment and Plan: Resolved, renal ultrasound within normal limits Discontinue IV fluids and observe on p.o. (4) DKA, type 2: Qualifiers: Diabetes mellitus complication detail: with coma Qualified Code(s): E11.11 - Type 2 diabetes mellitus with ketoacidosis with coma Code(s): E11.10 - Type 2 diabetes mellitus with ketoacidosis without coma Status: Acute Assessment and Plan: Resolved, advance diet as tolerated (5) Encephalopathy: Code(s): G93.40 - Encephalopathy, unspecified Status: Acute Assessment and Plan: Resolved when back on home medications (6) Dehydration: Code(s): E86.0 - Dehydration Status: Acute Assessment and Plan: Continue IV fluids (7) Hypernatremia: Code(s): E87.0 - Hyperosmolality and hypernatremia Status: Acute Assessment and Plan: Resolved (8) Essential hypertension: Code(s): I10 - Essential (primary) hypertension Status: Acute Assessment and Plan: Stable (9) Candidiasis of genitalia: Code(s): B37.49 - Other urogenital candidiasis Status: Acute Assessment and Plan: Resolved (10) Hypokalemia: Code(s): E87.6 - Hypokalemia Status: Acute Assessment and Plan: Continues to recur, replace and recheck tomorrow Plan DVT prophylaxis with Lovenox GI prophylaxis with Pepcid Code status full code Subjective Date/time seen: 03/25/22 10:41 Interval history: No overnight events noted. No chest pain or shortness of breath. No nausea, vomiting or diarrhea. No fevers or chills. Patient states she feels much better today, she is requesting not to be put back on her blood pressure medications because she thinks they make her feel lightheaded and dizzy and that is why she falls sometimes at home. Review of Systems Review of Systems: 12 point review of systems was assessed and was negative except as noted in the HPI Exam Narrative: General: No acute distress, alert and oriented per baseline HEENT: Atraumatic, normocephalic, mucous membranes moist CV: Regular rate and rhythm, S1, S2 Lungs: Clear to auscultation bilaterally, no rales or crackles noted, no wheezes, good air entry Abdomen: Soft, nontender, nondistended Extremities: Normal to inspection Skin: No rashes noted, no lesions or wounds seen Psych: Euthymic, normal affect Objective Data Vital Signs Vital Signs: Vital Signs - 24 hr 03/24/22 13:22 03/24/22 22:00 03/24/22 20:00 Temperature 98.0 F 97.5 F L Pulse Rate 88 97 Respiratory Rate 18 18 Blood Pressure 133/90 154/86 H Pulse Oximetry 100 100 Oxygen Delivery Room Air 03/25/22 06:00
[2022-03-25 11:47] LABS: Glucose Point of Care 135 mg/dl (65-105)
[2022-03-25 17:02] LABS: Glucose Point of Care 117 mg/dl (65-105)
[2022-03-25] MEDS: METOPROLOL TARTRATE 50 MG TAB PO ×2 (17:40→20:53)
[2022-03-25] MEDS: POTASSIUM CHLORIDE 20 MEQ TABLET 40 MEQ PO (17:40)
[2022-03-25] MEDS: POTASSIUM CHLORIDE INJ 40 MEQ in SODIUM CHLORIDE 0.9% IV 500 ML 130 MEQ IVPB (17:41)
[2022-03-25] MEDS: QUEtiapine FUMARATE 100 MG TABLET PO (20:52)
[2022-03-25] MEDS: MIRTAZAPINE 15 MG TABLET PO (20:52)
[2022-03-25 21:52] LABS: Glucose Point of Care 197 mg/dl (65-105)
[2022-03-26 03:34] VITALS: BP 147/73; PULSE 102; RESP 18; TEMP 37.3; O2SAT 98
[2022-03-26] MEDS: SODIUM CHLORIDE 0.9% IV 1,000 ML 150 ML IV CONT ×2 (04:03→11:00)
[2022-03-26] MEDS: SALINE LOCK FLUSH 10 ML IV PUSH ×2 (05:26→14:27)
[2022-03-26 05:53] LABS: Hematocrit 31.7 % (37.0-47.0); Hemoglobin 10.3 g/dL (12.0-15.0); Mean Corpuscular HGB Conc 32.5 g/dl (32-36); Mean Corpuscular Hemoglobin 28.3 pg (26-34); Mean Corpuscular Volume 87.1 fl (80-100); Mean Platelet Volume 9.9 fl (7.4-10.4); Platelet Count Result 176 k/mm3 (150-375); Red Blood Count 3.64 M/mm3 (4.2-5.4); Red Cell Distribution Width 13.6 % (11.5-14.5); White Blood Count 4.9 K/mm3 (4.5-10.0)
[2022-03-26 06:11] LABS: Alanine Aminotransferase 22 U/L (6-35); Albumin Level 2.6 g/dL (3.5-5.1); Alkaline Phosphatase 115 U/L (38-126); Anion Gap 5 mmol/L (8-16); Aspartate Amino Transferase 48 U/L (14-36); Bilirubin,Total 0.4 mg/dL (0.2-1.3); Blood Urea Nitrogen 7 mg/dL (7-17); Calcium 7.8 mg/dL (8.4-10.2); Carbon Dioxide 29 mmol/L (22-30); Chloride 103 mmol/L (98-107); Estimated CRCL calculation 80 ml/min; Estimated Glomerular Filt Rate > 60; Glucose 82 mg/dL (65-110); Phosphorus 1.7 mg/dL (2.5-4.5); Potassium 3.3 mmol/L (3.4-5.0); Sodium 137 mmol/L (137-145)
[2022-03-26 08:05] LABS: Glucose Point of Care 78 mg/dl (65-105)
[2022-03-26] MEDS: ATORVASTATIN 40 MG TABLET PO (08:50)
[2022-03-26] MEDS: MONTELUKAST SODIUM 10 MG TABLET PO (08:50)
[2022-03-26] MEDS: EMPAGLIFLOZIN 25 MG TABLET PO (08:50)
[2022-03-26] MEDS: METOPROLOL TARTRATE 50 MG TAB PO (08:50)
[2022-03-26] MEDS: POTASSIUM CHLORIDE 10 MEQ TABLET.ER PO (08:50)
[2022-03-26] MEDS: SILVERGEL (ELTA) 45 ML 1 APPLIC TOPICAL (08:51)
[2022-03-26] MEDS: TOLNAFTATE 1% POWDER 45 GM BTL 1 APPLIC TOPICAL (08:51)
[2022-03-26 12:16] LABS: Glucose Point of Care 156 mg/dl (65-105)
--- NOTE | 2022-03-26 12:18 | PCNFU ---
Nutrition Follow-Up Complete: Altered nutrition related lab values related to uncontrolled T2 diabetes as evidenced by DKA, elevated glucose. Goal: Advance to PO intake as medically able - Goal being met New goal: Adequate PO intake at least 75% meals - Progressing. Meal intakes improving Pt current nutrition is Diabetic consistent carb diet. Nutrition recommendation: Continue current diet order. Recommend outpatient diabetes education/nutrition when discharged Last recorded weight is 73.5 kg. Bowel Motility: +1 BM 11.13.22 Labs Reviewed: Hgb 10.3, Hct 31.7, Alb 2,6, K+ 33, Glu 78-197 Meds Noted: Lipitor, Lovenox, Insulin Novolog, Lantus; Remeron, metoprolol Skin: Diabetic foot ulcer Additional Notes: Spoke to patient, she has no questions about a diabetic diet. She has been seen by the sales review clerk. Recommended to her that she get a referral for an outpatient nutrition education visit after discharge. Monitoring diet advancement, labs, weights, plan of care. Follow up 5 days. Rounds daily.
[2022-03-26 14:00] VITALS: BP 137/76; PULSE 94; RESP 18; TEMP 36.7; O2SAT 100
--- NOTE | 2022-03-26 14:12 | PM.IMPN ---
Progress Note: A&P Assessment and Plan (1) Orthostatic hypotension: Code(s): I95.1 - Orthostatic hypotension Status: Acute Assessment and Plan: Continues to be orthostatic, increased IV fluids and monitor Her usual home blood pressure medications are on hold. Noted to be tachycardic yesterday started on metoprolol half the dose Will recheck her orthostatic vitals today Cardiology has been consulted await their recommendations (2) Sepsis: Qualifiers: Sepsis type: sepsis due to unspecified organism Sepsis acute organ dysfunction status: with acute organ dysfunction Severe sepsis acute organ dysfunction type: encephalopathy Severe sepsis shock status: without septic shock Qualified Code(s): A41.9 - Sepsis, unspecified organism; R65.20 - Severe sepsis without septic shock; G93.40 - Encephalopathy, unspecified Code(s): A41.9 - Sepsis, unspecified organism Status: Acute Assessment and Plan: Patient likely was never septic, all symptoms were likely secondary to DKA, patient has remained stable off antibiotics (3) Acute kidney injury: Code(s): N17.9 - Acute kidney failure, unspecified Status: Acute Assessment and Plan: creatinine 1.8 on admission Resolved, renal ultrasound within normal limits Currently on IV fluids if orthostatic is negative will stop them (4) DKA, type 2: Qualifiers: Diabetes mellitus complication detail: with coma Qualified Code(s): E11.11 - Type 2 diabetes mellitus with ketoacidosis with coma Code(s): E11.10 - Type 2 diabetes mellitus with ketoacidosis without coma Status: Acute Assessment and Plan: Resolved, advance diet as tolerated (5) Encephalopathy: Code(s): G93.40 - Encephalopathy, unspecified Status: Acute Assessment and Plan: Resolved when back on home medications MRI was negative (6) Dehydration: Code(s): E86.0 - Dehydration Status: Acute Assessment and Plan: Continue IV fluids (7) Hypernatremia: Code(s): E87.0 - Hyperosmolality and hypernatremia Status: Acute Assessment and Plan: Resolved (8) Essential hypertension: Code(s): I10 - Essential (primary) hypertension Status: Acute Assessment and Plan: Stable More hypertensive at supine May need blood pressure medication restarted will forego her diuretic blood pressure medication (9) Candidiasis of genitalia: Code(s): B37.49 - Other urogenital candidiasis Status: Acute Assessment and Plan: Resolved (10) Hypokalemia: Code(s): E87.6 - Hypokalemia Status: Acute Assessment and Plan: Continues to recur, replace and monitor Plan type 2 diabetes on Lantus 20 units in SSI along which Jardiance Presented with DKA with blood sugar more than 700 and hypothermia initially treated in the ICU DVT prophylaxis with Lovenox GI prophylaxis with Pepcid Code status full code Subjective Date/time seen: 03/26/22 14:12 Interval history: Feels well. No new complaints. No fever chills. Denies abdominal pain or nausea vomiting. Wants to go home. Review of Systems Review of Systems: All systems reviewed & are unremarkable except as noted in HPI and below Exam Narrative: General: No acute distress, alert and oriented per baseline HEENT: Atraumatic, normocephalic, mucous membranes moist CV: Regular rate and rhythm, S1, S2 Lungs: Clear to auscultation bilaterally, no rales or crackles noted, no wheezes, good air entry Abdomen: Soft, nontender, nondistended Extremities: Normal to inspection Skin: No rashes noted, no lesions or wounds seen Psych: Euthymic, normal affect Objective Data Vital Signs Vital Signs: Vital Signs - 24 hr 03/25/22 16:00 03/25/22 17:01 03/25/22 17:24 Temperature 99.1 F 99.2 F Pulse Rate 114 H 120 H 121 H Respiratory Rate 20 16 16 Blood Pressure 177/103 H 176/99 H 142/90 H Pulse Oxim
[2022-03-26 16:18] VITALS: BP 154/82; BP 173/93; BP 185/94; PULSE 100; PULSE 96; PULSE 99; O2SAT 100
[2022-03-26 16:49] LABS: Glucose Point of Care 165 mg/dl (65-105)
--- NOTE | 2022-03-26 16:53 | PM.DS ---
DS: Admitting Diagnosis Discharge Date Admitting Diagnosis DKA DS: Discharge Diagnosis Discharge Diagnosis (1) Orthostatic hypotension: Code(s): I95.1 - Orthostatic hypotension Status: Acute (2) Sepsis: Qualifiers: Sepsis type: sepsis due to unspecified organism Sepsis acute organ dysfunction status: with acute organ dysfunction Severe sepsis acute organ dysfunction type: encephalopathy Severe sepsis shock status: without septic shock Qualified Code(s): A41.9 - Sepsis, unspecified organism; R65.20 - Severe sepsis without septic shock; G93.40 - Encephalopathy, unspecified Code(s): A41.9 - Sepsis, unspecified organism Status: Acute (3) Acute kidney injury: Code(s): N17.9 - Acute kidney failure, unspecified Status: Acute (4) DKA, type 2: Qualifiers: Diabetes mellitus complication detail: with coma Qualified Code(s): E11.11 - Type 2 diabetes mellitus with ketoacidosis with coma Code(s): E11.10 - Type 2 diabetes mellitus with ketoacidosis without coma Status: Acute (5) Encephalopathy: Code(s): G93.40 - Encephalopathy, unspecified Status: Acute (6) Dehydration: Code(s): E86.0 - Dehydration Status: Acute (7) Hypernatremia: Code(s): E87.0 - Hyperosmolality and hypernatremia Status: Acute (8) Essential hypertension: Code(s): I10 - Essential (primary) hypertension Status: Acute (9) Candidiasis of genitalia: Code(s): B37.49 - Other urogenital candidiasis Status: Acute (10) Hypokalemia: Code(s): E87.6 - Hypokalemia Status: Acute DS: Summary Hospital Course Reason for hospitalization: 51-year-old female with a past medical history of type 2 diabetes treated with insulin, hypertension, hyperlipidemia, and psychiatric illness who presented to outside ER due to cough, throwing up and collapse.? Information is limited as the patient is encephalopathic and only has a GCS of 9.? According to the triage nurses report from outside records the patient had been coughing and vomiting at home.? She went to the bathroom and evidently collapsed.? It is unclear if she hit her head.? The family did not go check on her for about 5 minutes when she was found on the floor.? When she arrived to the outside facility her heart rate was in the 120s.? Her blood pressures were in the 130s to 150 systolic.? Her glucoses were greater than 700.? The patient received 3 L of normal saline and was started on an insulin drip.? Her initial lactic acid was elevated to 5.3 but came down to 2.7 after IV fluid hydration.? A Dozier catheter was placed and she had approximately 1.6 L of urine output after fluid boluses.? The patient's temperature was low and the patient was placed under a Dakota Hugger.? Her temperature had improved but by the time she arrived to our facility her temperature was again unmeasurable with surface measurements.? Her temperature with a temperature pulp Dozier after being under Dakota Hugger for approximately 20 minutes was 94.3?.? At the outside hospital the patient received vancomycin and cefepime.? Her UA at the outside facility was unremarkable except for ketones and large amount of glucose.? However when her Dozier was exchanged in the ICU she had white purulent appearing drainage from her urethra.? Nursing staff did not note any evidence of superficial yeast infection.? On exam the patient does have a wound to the bottom of her left foot that appeared to be consistent with puncture wound but no evidence of infection.? White count at the outside facility was elevated to 15.9.? Her influenza and COVID PCR was negative at the outside facility.? Her pH at the outside facility was 7.1 with a pCO2 less than 14.? Her bicarb was undetectable on her CMP and her potassium was 4.6.? Her repeat glucose when she arrived at our facility was 280.? CT scan of her head at the outside facility demonstrated cerebral atro
--- NOTE | 2022-03-26 16:54 | PM.CNCAR ---
Assessment and Plan Assessment and plan (1) Orthostatic hypotension: Code(s): I95.1 - Orthostatic hypotension Status: Acute Plan Orthostatic hypotension likely due to intravascular depletion from her DKA. She does not endorse any orthostatic symptoms today. Would recheck orthostatic vital signs. If no longer orthostatic, would gradually re-introduce her home BP meds and see how see tolerates them. Patient to follow-up with her primary Pals Specialist, Dr. Regalado, as an outpatient. Cardiology will sign off. History of Present Illness History of Present Illness Consult date/time: 03/26/22 16:54 Requesting physician: Staci Melendrez, Consult reason: hypotension and Other Reason For Visit: DKA Narrative: We are being consulted for orthostatic hypotension. This is a 52-year-old female with a history of DM, HTN, and HLD who presented with coughing, vomiting, and altered mental status. Found to be in DKA, and was treated in our ICU. DKA then resolved and patient was transferred out to the floor. Patient was noted to be significantly orthostatic yesterday and was given IVFs. Patient states that she is feeling much better now. States she walked about 50 feet or so and did not have any symptoms with that. She has been on her blood pressure medications for a while now, and has been stable on them prior to this admission without any issues in the past with orthostasis. She follows with a aluminum pool installer, Dr. Regalado. At the time of my exam, she states she is feeling much better and wants to go home. Review of Systems Review of Systems: 12-point ROS obtained. Negative, unless stated in HPI. [facility] Past Medical History Medical History Essential hypertension Hyperlipidemia Insulin dependent diabetes mellitus Surgical History Surgical History Surgical history unknown Family History Family History Other Unknown family medical history Social History Social History Smoking status: Never smoker Other substance usage details: Unable to assess; Patient unable to answer questions at this time Spiritual care concerns: No Meds Home Medications and Allergies Home Medications Medication Instructions Recorded Confirmed Type amlodipine 10 mg tablet 10 mg PO DAILY 03/20/22 03/20/22 History atorvastatin 40 mg tablet 40 mg PO DAILY 03/20/22 03/20/22 History empagliflozin 25 mg tablet 25 mg PO DAILY 03/20/22 03/20/22 History (Jardiance) famotidine 20 mg tablet 20 mg PO DAILY 03/20/22 03/20/22 History gabapentin 300 mg capsule 300 mg PO TID 03/20/22 03/20/22 History ibuprofen 800 mg tablet 800 mg PO Q8H 03/20/22 03/20/22 History loratadine 10 mg tablet 10 mg PO DAILY 03/20/22 03/20/22 History mirtazapine 15 mg tablet 15 mg PO DAILY 03/20/22 03/20/22 History montelukast 10 mg tablet 10 mg PO DAILY 03/20/22 03/20/22 History potassium chloride 10 mEq 10 meq PO DAILY 03/20/22 03/20/22 History tablet,extended release quetiapine 100 mg tablet 100 - 200 mg PO HS 03/20/22 03/20/22 History sertraline 50 mg tablet 50 mg PO DAILY 03/20/22 03/20/22 History insulin glargine 100 unit/mL (3 20 unit (0.2 mL) subcut QHS #6 mL 03/26/22 03/24/22 Rx mL) subcutaneous pen (Lantus Solostar U-100 Insulin) metoprolol tartrate 100 mg tablet 50 mg PO Q12H #30 tabs 03/26/22 03/20/22 Rx Allergies Allergy/AdvReac Type Severity Reaction Status Date / Time No Known Allergies Allergy Verified 03/20/22 20:50 Vital Signs Vital Signs - 24 hr 03/25/22 17:01 03/25/22 17:24 03/25/22 17:27 Temperature 37.3 C 37.3 C Pulse Rate 120 H 121 H 125 H Respiratory Rate 16 16 16 Blood Pressure 176/99 H 142/90 H 107/66 Pulse Oximetry 98 98 100 Oxygen Delivery 03/25/22 17:40 03/25/22 19:54 03/25/22 20:53 Temperature 36.0 C
[2022-03-26] MEDS: INSULIN GLARGINE (*BKC) 100 UNITS/ML 15 UNITS SUB-Q (17:20)
--- NOTE | 2022-03-26 17:49 | PCCCNOTE ---
Phone call received from dry pan charger Malgorzata that patient needs help with transportation. Met with patient in room 320, she lives with her mom and they both do not have vehicles or drive and use the bus system. She does not have any tokens and does not ride at night. Asked if she had money for a cab and she takes that she does not. Patient confirms address written on cab voucher and voucher provided to interactive web developer when patient is ready.
== END 2022-03-26 19:20 | disposition home or self-care (01) | DRG 420 ==
LOC: ANHICU 03-22 12:16 → ANHIMU 03-22 12:32 → ANH3MEDSUR 03-24 13:11
PROVIDERS: Internal Medicine; Student in an Organized Health Care Education/Training Program; Admitting Provider Internal Medicine; Visit Provider Internal Medicine
DX: E11.10 Type 2 diabetes mellitus with ketoacidosis without coma (principal); G93.41 Metabolic encephalopathy; N17.9 Acute kidney failure, unspecified; E87.0 Hyperosmolality and hypernatremia; B37.49 Other urogenital candidiasis; L97.429 Non-pressure chronic ulcer of left heel and midfoot with unspecified severity; I95.1 Orthostatic hypotension; E11.621 Type 2 diabetes mellitus with foot ulcer; E04.1 Nontoxic single thyroid nodule; E78.5 Hyperlipidemia, unspecified; E86.1 Hypovolemia; E86.0 Dehydration; E87.6 Hypokalemia; I10 Essential (primary) hypertension; R68.0 Hypothermia, not associated with low environmental temperature; R74.02 Elevation of levels of lactic acid dehydrogenase [LDH]; Z28.21 Immunization not carried out because of patient refusal; Z79.4 Long term (current) use of insulin; Z79.84 Long term (current) use of oral hypoglycemic drugs; Z91.14 Patient's other noncompliance with medication regimen
CPT/HCPCS: 36415; 36569; 70551; 76775; 80048; 80053; 80307; 81001; 82140; 82550; 82570; 82948; 83036; 83605; 83735; 84100; 84300; 84439; 84443; 84480; 85025; 85027; 85055; 87040; 87086; 93005; 97110; 97116; 97161; 97165; 97530; A9270; C1751; J0692; J1450; J1650; J1815; J2405; J3480; J7030; J7040; J7070